=== PATIENT | female | born 1975 | race Caucasian/White ===

== ENCOUNTER 2018-05-04 15:25 | Emergency (ER) | payer OTHER, MEDICAID ==
[~2018-05-04] VITALS: Ht 160 cm; Wt 72.6 kg
[2018-05-04] MEDS ORDERED: VITAMIN D2000 UNIT PO (15:35)
[2018-05-04] MEDS ORDERED: CYCLOBENZAPRINE10 MG PO (16:21)
[2018-05-04] MEDS ORDERED: IBUPROFEN 800800 MG PO (16:21)
[2018-05-04 16:36] VITALS: BP 111/65
== END 2018-05-04 16:39 | disposition home or self-care (01) ==
LOC: M.ERS 15:25
DX: M25.511 Pain in right shoulder (principal); F17.210 Nicotine dependence, cigarettes, uncomplicated; Z88.8 Allergy status to other drugs, medicaments and biological substances; V49.69XA Unspecified car occupant injured in collision with other motor vehicles in traffic accident, initial encounter; Y93.89 Activity, other specified; Y92.89 Other specified places as the place of occurrence of the external cause; Y99.8 Other external cause status